=== PATIENT | male | born 1980 | race Caucasian/White ===

== ENCOUNTER 2017-12-16 18:48 | Emergency (ER) | payer OTHER ==
--- NOTE | 2017-12-16 19:35 | ED ---
ENT HPI - General Chief complaint: ENT Stated complaint: left jaw swelling Time Seen by Provider: 12/16/17 19:03 Source: patient, RN notes reviewed, old records reviewed Mode of arrival: ambulatory Limitations: no limitations - History of Present Illness Initial comments: This patient is a 37-year-old male presents emergency Department chief complaint of sudden onset of left jaw swelling. He reports that he was eating dinner and started noticed that this occurred. He states that the swelling is gone down somewhat. It extends up into his ear. Patient relates that he has no fever or chills. Denies any drainage. Denies any dental pain or fevers. Denies any sinus issues. He is had no cough or congestion. He is not on any blood pressure medication. - Related Data Previous Rx's Medication Instructions Recorded Amoxic-Pot Clav 875-125Mg 1 tab PO Q12HR #20 tablet 12/16/17 [Augmentin 875-125] Allergies Allergy/AdvReac Type Severity Reaction Status Date / Time No Known Allergies Allergy Verified 12/16/17 19:02 Review of Systems ROS Statement: Those systems with pertinent positive or pertinent negative responses have been documented in the HPI. ROS Other: All systems not noted in ROS Statement are negative. Past Medical History Past Medical History: No Reported History History of Any Multi-Drug Resistant Organisms: None Reported Past Surgical History: No Surgical Hx Reported Past Psychological History: ADD/ADHD, Anxiety Smoking Status: Current some day smoker Past Alcohol Use History: Occasional Past Drug Use History: Marijuana General Exam - General Exam Comments Initial Comments: 37-year-old male. No acute distress. Limitations: no limitations General appearance: alert, in no apparent distress Head exam: Present: atraumatic, normocephalic, normal inspection Eye exam: Present: normal appearance, PERRL, EOMI. Absent: scleral icterus, conjunctival injection, periorbital swelling ENT exam: Present: normal exam, mucous membranes moist, other (Significant left- sided facial swelling. He has some mild tenderness over the parotid area.) Neck exam: Present: normal inspection. Absent: tenderness, meningismus, lymphadenopathy Respiratory exam: Present: normal lung sounds bilaterally. Absent: respiratory distress, wheezes, rales, rhonchi, stridor Cardiovascular Exam: Present: regular rate, normal rhythm, normal heart sounds. Absent: systolic murmur, diastolic murmur, rubs, gallop, clicks GI/Abdominal exam: Present: soft, normal bowel sounds. Absent: distended, tenderness, guarding, rebound, rigid Extremities exam: Present: normal inspection, full ROM, normal capillary refill. Absent: tenderness, pedal edema, joint swelling, calf tenderness Back exam: Present: normal inspection Neurological exam: Present: alert, oriented X3, CN II-XII intact Psychiatric exam: Present: normal affect, normal mood Skin exam: Present: warm, dry, intact, normal color. Absent: rash Course Vital Signs 12/16/17 19:01 Temperature 99.3 F Pulse Rate 67 Respiratory 20 Rate Blood Pressure 139/68 O2 Sat by Pulse 99 Oximetry Medical Decision Making - Medical Decision Making 29-year-old male present raise pharmacy to play set onset of left sided facial swelling. Consistent with parotitis. He does have a large parotid gland. His teeth appear normal no signs of abscesses. He is received CHILDHOOD vaccinations. Senna fever or chills or any other symptoms. Was a sudden onset of swelling. Clinically taking a stone. However this time of onset review of the computed tomography scan the radiologist did not see a stone. I will treat the patient as if this is an infectious parotitis with Augmentin. Given a referral for ENT. Discussed the importance of using throat lozenges. All questions answered and return parameters were discussed. - Radiology Data Radiology results: report reviewed Soft tissue swelling along the chin could represent cellulitis. Chronic ethmoid sinus disease rightward nasal septum deviation. There seems to be sensory parotid tissue on the left overlying the mass eat or muscle. Disposition Clinical Impression: Parotitis Disposition: HOME SELF-CARE Condition: Good Instructions: Sialoadenitis (ED) Additional Instructions: Patient advised to suck on Levaquin lozenges to promote salivation. Take the antibiotics as prescribed. Return to the emergency department if any alarming signs or symptoms occur. Prescriptions: Amoxic-Pot Clav 875-125Mg [Augmentin 875-125] 1 tab PO Q12HR #20 tablet Referrals: Steve Fox MD [Primary Care Provider] - 1-2 days Toribio Ty DO [Doctor of Osteopathic Medicine] - 1-2 days Time of Disposition: 20:20
--- NOTE | 2017-12-16 19:56 | CT ---
EXAMINATION TYPE: CT facial bones wo con DATE OF EXAM: 12/16/2017 COMPARISON: NONE HISTORY: 37-year-old male Left side jaw swelling. TECHNIQUE: Contiguous axial scanning of the facial bones without IV contrast. Coronal reconstructions performed. CT DLP: 868.8 mGycm Automated exposure control for dose reduction was used. FINDINGS: There is soft tissue swelling overlying the chin. No underlying mandibular, nasal bone, orbital, or f acial bone fracture seen. Rightward nasal septal deviation. Trace mucosal thickening throughout the ethmoid air cells. Patient's gaze is slightly divergent but the orbits and globes are otherwise intact. Visualized intracranial structures show no gross abnormality. Borderline sized left submandibular space lymph node at 8 mm. The visualized submandibular glands appear normal. The patient is obliqued limiting [id number] asse ssment of the parotid glands which are also only partially imaged. There appears to be some accessory lobe of the left parotid gland overlying the left masseter muscle. IMPRESSION: 1. SOME SOFT TISSUE SWELLING ALONG THE CHIN COULD REPRESENT CELLULITIS. CLINICALLY CORRELATE. 2. MILD CHRONIC ETHMOID SINUS DISEASE. RIGHTWARD NASAL SEPTAL DEVIATION. 3. THERE SEEMS TO BE ACCESSORY PAROTID TISSUE ON THE LEFT OVERLYING THE MASSETER MUSCLE.
[2017-12-16] MEDS ORDERED: AMOXIC-POT CLAV 875MG STARTER 2 EACH TABLET PO STA (20:20)
[2017-12-16 20:28] VITALS: BP 140/77; PULSE 65; RESP 18; TEMP 99.2
== END 2017-12-16 20:27 | disposition home or self-care (01) ==
LOC: EC 18:48
DX: K11.20 Sialoadenitis, unspecified (principal); F17.200 Nicotine dependence, unspecified, uncomplicated
CPT/HCPCS: 70486; 99284